=== PATIENT | female | born 1950 | race Caucasian/White ===

== ENCOUNTER 2021-02-21 21:55 | Inpatient (IN) | payer MEDICARE ==
[~2021-02-21] VITALS: Ht 144.8 cm; Wt 56.9 kg
[2021-02-21] MEDS ORDERED: IV NORMAL SALINE 1000ML BAG 1,000 ML IV ONE (22:15)
--- NOTE | 2021-02-21 22:25 | ED.ADGEN ---
General Adult EDM: Chief Complaint: MECHANICAL FALL HPI: HPI: Patient is a 70 year old female coming in via EMS from home after a fall yesterday. Patient is complaining of pain to her right foot. Patient normally ambulates with a walker but says her foot went underneath her. Came in tonight at the urging of her . Patient states she took 2 Percocets, tizanidine, and trazodone tonight. States is her usual medications. Patient states that she was given a medicine by her doctor to slow her heart rate but does not know what the name is. Patient states she has a history of a valve replacement, one cardiac stent, back surgery, and COPD. Is normally on 4 L nasal cannula at home Review of Systems: Review of Systems: All other systems within normal limits except for as noted in the HPI Current Medications: Current Medications Medications (Trade) Dose Ordered Sig/Jagdeep Start Time Stop Time Status Last Admin Dose Admin Sodium Chloride 1,000 ml @ 1,000 mls/hr 1X ONCE 02/21/21 22:15 02/21/21 23:14 DC 02/21/21 22:40 1,000 MLS/HR Allergies: Allergies: Allergies Coded Allergies Type Severity Reaction Last Updated Verified morphine Allergy Severe 02/21/21 Yes Physical Exam: PE: Constitutional: Well developed, well nourished, no acute distress, non-toxic appearance. [] HENT: Normocephalic, atraumatic, bilateral external ears normal, nose normal. [] Eyes: PERRLA, conjunctiva normal, no discharge. [] Neck: No rigidity, supple, no stridor. [] Cardiovascular: Regular rate and rhythm, brisk cap refill [] Lungs & Thorax: Non labored symmetric respirations, no tachypnea or respiratory distress [] Abdomen: Soft, nondistended. Skin: Warm, dry, no erythema, no rash. [] Back: Unremarkable Extremities: No deformities, range of motion grossly intact, no lower extremity edema. Redness and tenderness over right ankle, redness and bruising over right second toe [] Neurologic: Alert and oriented X 3, no focal deficits noted. [] Psychologic: Affect normal, judgement normal, mood normal. [] Current Patient Data: Labs: Laboratory Tests Test 02/21/21 22:40 White Blood Count 6.7 x10^3/uL (4.0-11.0) Red Blood Count 3.48 x10^6/uL (3.50-5.40) L Hemoglobin 9.0 g/dL (12.0-15.5) L Hematocrit 28.2 % (36.0-47.0) L Mean Corpuscular Volume 81 fL (79-100) Mean Corpuscular Hemoglobin 26 pg (25-35) Mean Corpuscular Hemoglobin Concent 32 g/dL (31-37) Red Cell Distribution Width 19.5 % (11.5-14.5) H Platelet Count 86 x10^3/uL (140-400) L Neutrophils (%) (Auto) 53 % (31-73) Lymphocytes (%) (Auto) 33 % (24-48) Monocytes (%) (Auto) 11 % (0-9) H Eosinophils (%) (Auto) 2 % (0-3) Basophils (%) (Auto) 1 % (0-3) Neutrophils # (Auto) 3.6 x10^3/uL (1.8-7.7) Lymphocytes # (Auto) 2.2 x10^3/uL (1.0-4.8) Monocytes # (Auto) 0.7 x10^3/uL (0.0-1.1) Eosinophils # (Auto) 0.2 x10^3/uL (0.0-0.7) Basophils # (Auto) 0.0 x10^3/uL (0.0-0.2) Platelet Estimate Decreased (ADEQUATE) Large Platelets Few Giant Platelets Occ Prothrombin Time 13.6 SEC (11.7-14.0) Prothrombin Time INR 1.0 (0.8-1.1) D-Dimer (Valarie) 4.81 ug/mlFEU (0.00-0.50) H Sodium Level 139 mmol/L (136-145) Potassium Level 5.8 mmol/L (3.5-5.1) H Chloride Level 104 mmol/L (98-107) Carbon Dioxide Level 27 mmol/L (21-32) Anion Gap 8 (6-14) Blood Urea Nitrogen 40 mg/dL (7-20) H Creatinine 1.1 mg/dL (0.6-1.0) H Estimated GFR (Cockcroft-Gault) 49.2 BUN/Creatinine Ratio 36 (6-20) H Glucose Level 108 mg/dL (70-99) H Lactic Acid Level 0.9 mmol/L (0.4-2.0) Calcium Level 10.0 mg/dL (8.5-10.1) Phosphorus Level 3.3 mg/dL (2.6-4.7) Magnesium Level 1.6 mg/dL (1.8-2.4) L Total Bilirubin 0.3 mg/dL (0.2-1.0) Aspartate Amino Transferase (AST) 38 U/L (15-37) H Alanine Aminotransferase (ALT) 20 U/L (14-59) Alkaline Phosphatase 145 U/L (46-116) H Troponin I High Sensitivity 15 ng/L (4-50) HM-Yvv-K-Type Natriuretic Peptide 3284 pg/mL (0-124) H Total Protein 6.9 g/dL (6.4-8.2) Albumin 3.0 g/dL (3.4-5.0) L Albumin/Globulin Ratio 0.8 (1.0-1.7) L Ethyl Alcohol Level < 10 mg/dL (0-10) Laboratory Tests 02/21/21 22:40 Laboratory Tests 02/21/21 22:40 Vital Signs: Vital Signs Date Time Temp Pulse Resp B/P (MAP) Pulse Ox O2 Delivery O2 Flow Rate FiO2 02/21/21 22:58 42 16 72/51 (58) 100 Nasal Cannula 2.0 02/21/21 22:20 98.0 98.0 EKG: EKG: Sinus bradycardia, left axis deviation, heart rate 44 bpm, right bundle branch block, bifascicular block, no ST elevation or depression, T wave inversions in inferior leads. No previous for comparison [] Heart Score: C/O Chest Pain: No HEART Score for Chest Pain: HEART Score for Chest Pain Response (Comments) Value History Slighlty/Non-Suspicious 0 ECG Nonspecific Repolarizatio 1 Age > 65 2 Risk Factors >3 Risk Factors or Hx CAD 2 Troponin < Normal Limit 0 Total 5 Risk Factors: Risk Factors: DM, Current or recent (<one month) smoker, HTN, HLP, family history of CAD, obesity. Risk Scores: Score 0 - 3: 2.5% MACE over next 6 weeks - Discharge Home Score 4 - 6: 20.3% MACE over next 6 weeks - Admit for Clinical Observation Score 7 - 10: 72.7% MACE over next 6 weeks - Early Invasive Strategies Radiology/Procedures: Radiology/Procedures: [place] [address] IMAGING REPORT Signed PATIENT: MARIA ESTHER DE LA CRUZ ACCOUNT: [id number] : 1950 LOCATION: ER AGE: 70 SEX: F EXAM STATUS: REG ER ORD. PHYSICIAN: KAVON SHARMA MD REASON: fall PROCEDURE: FOOT RIGHT 3V Three-view right foot HISTORY: Pain status post fall AP lateral oblique views There is a pin in the first metatarsal. There is buckling of the cortex of the distal second metatarsal without interruption of the cortex. There is a nondisplaced fracture through the midportion of the proximal phalanx of the great toe. IMPRESSION: 1. Acute fracture of the proximal phalanx of the great toe. 2. Probable acute fracture of the distal portion of the second metatarsal. Electronically signed by: El Horton III, MD (02/21/2021 11:58 PM) [facility] DICTATED and SIGNED BY: EL HORTON III, MD DATE: 02/21/21 [id number] [][place] [id number] IMAGING REPORT Signed PATIENT: MARIA ESTHER DE LA CRUZ ACCOUNT: [id number] : 1950 LOCATION: ER AGE: 70 SEX: F EXAM STATUS: REG ER ORD. PHYSICIAN: KAVON SHARMA MD REASON: fall PROCEDURE: HIP RIGHT 2V WITH PELVIS XR BILATERAL HIP (WITH OR WITHOUT PELVIS) 2 VIEWS_RIGHT, XR RT TIBIA+FIBULA , XR CHEST 1V, XR EXAM OF ANKLE_RIGHT 3VIEWS Clinical History: Reason: fall / Spl. Instructions: / History: One view chest: Technique: AP view of the chest was obtained at 02/21/2021 11:10 PM. Comparison: None. Findings: The chest is borderline enlarged. The pulmonary vasculature is normal. There is a few linear opacities in the mid and lower lungs which are likely discoid atelectasis or scar. There is old rib fractures on the left. There is mediastinal wires and there is fusion of the thoracic spine with Mancera rods.. Impression: No evidence of an acute cardiopulmonary process. End impression Two-view right tibia fibula: AP lateral views Visualized osseous structures appear normal. IMPRESSION: No acute findings. End impression 3 views right ankle: AP lateral oblique views There is a nondisplaced spiral fracture in the distal right tibia. The tibiotalar relationship is normal. The remaining visualized osseous structures appear normal. IMPRESSION: Nondisplaced fracture distal right tibia. End impression Pelvis and 2 views right hip: AP view pelvis and AP and frog leg views right hip There is prior fusion of the lumbar and lumbosacral spine. The visualized osseous structures are grossly intact. The femoral acetabular relationship is normal. IMPRESSION: No acute findings. Electronically signed by: El Horton III, MD (02/21/2021 11:22 PM) [facility] DICTATED and SIGNED BY: EL HORTON III, MD DATE: 02/21/[id number] [facility] [address] [place] [address] IMAGING REPORT Signed PATIENT: MARIA ESTHER DE LA CRUZ ACCOUNT: [id number] : 1950 LOCATION: ER AGE: 70 SEX: F EXAM STATUS: REG ER ORD. PHYSICIAN: KAVON SHARMA MD REASON: fall PROCEDURE: CT HEAD WO CONTRAST EXAM: CT HEAD WITHOUT CONTRAST. HISTORY: Fall, trauma. TECHNIQUE: Computed tomography of the head was performed without intravenous contrast. One or more of the following individualized dose reduction techniques were utilized for this examination: 1. Automated exposure control. 2. Adjustment of the mA and/or kV according to patient size. 3. Use of iterative reconstruction technique. COMPARISON: None. FINDINGS: There is no intracranial hemorrhage. Baumann-white differentiation is preserved. The ventricles are normal in size. There is 4 mm rightward midline shift. The visualized paranasal sinuses appear clear. There are changes of bilateral cataract surgery. The temporal bones are unremarkable. The calvarium reveals no suspicious lesions. IMPRESSION: 1. No acute intracranial findings. 2. 4 mm rightward midline shift without a clear cause of mass effect. This may be a developmental variant. Comparison with older studies to confirm long-term stability. MRI with and without contrast could exclude an underlying lesion if there is persistent concern. Electronically signed by: Dre Butler MD (02/21/2021 11:25 PM) [id number] DICTATED and SIGNED BY: SARAH BUTLER MD DATE: 02/21/21 [id number] 0 Course & Med Decision Making: Course & Med Decision Making Pertinent Labs and Imaging studies reviewed. (See chart for details) Patient initially hypotensive but mentating. Patient hydrated with an improvement of her blood pressure from 66/30 to a systolic of 140s. [] Dragon Disclaimer: Dragon Disclaimer: This electronic medical record was generated, in whole or in part, using a voice recognition dictation system. Departure Departure Impression: Primary Impression: Closed right ankle fracture Additional Impressions: Fall Dehydration Hypotension Disposition: ADMITTED INPATIENT Admitting Physician: HIMKala Condition: IMPROVED Referrals: FIDENCIO NOGUERA (PCP) Problem Qualifiers KAVON SHARMA MD Feb 21, 2021 22:25
--- NOTE | 2021-02-21 22:38 | EKG ---
[facility] [address] [place] [address] Test Date: 2021-02-21 Test Time: 22:13:16 Pat Name: MARIA ESTHER DE LA CRUZ Department: Room: Gender: F Heat Curer: : 1950 Requested By: KAVON SHARMA Order Number: [id number] Reading MD: Keegan Ramos Measurements Intervals Offerle Rate: 44 P: 25 RI: 156 QRS: -37 QRSD: 142 T: -24 QT: 460 QTc: 393 Interpretive Statements SINUS BRADYCARDIA ABNORMAL LEFT AXIS DEVIATION LEFT ANTERIOR FASCICULAR BLOCK RIGHT BUNDLE BRANCH BLOCK BIFASCICULAR BLOCK ABNORMAL ECG RI6.02 No previous ECG available for comparison Electronically Signed On 02-22-2021 14:17:45 PLATING MACHINE OPERATOR by Keegan Ramos
[2021-02-21 22:52] LABS: BASO % 1 % (0-3); EOS # 0.2 x10^3/uL (0.0-0.7); EOS % 2 % (0-3); HEMATOCRIT 28.2 % (36.0-47.0); LYMPH # 2.2 x10^3/uL (1.0-4.8); LYMPH % 33 % (24-48); MEAN CORPUSCULAR HEMOGLOBIN 26 pg (25-35); MEAN CORPUSCULAR HGB CONC 32 g/dL (31-37); MEAN CORPUSCULAR VOLUME 81 fL (79-100); MONO # 0.7 x10^3/uL (0.0-1.1); MONO % 11 % (0-9); NEUT # 3.6 x10^3/uL (1.8-7.7); NEUT % 53 % (31-73); PLATELET COUNT 86 x10^3/uL (140-400); RED BLOOD COUNT 3.48 x10^6/uL (3.50-5.40); RED CELL DISTRIBUTION WIDTH 19.5 % (11.5-14.5); WHITE BLOOD COUNT 6.7 x10^3/uL (4.0-11.0)
[2021-02-21 23:01] LABS: PROTHROMBIN TIME PATIENT 13.6 SEC (11.7-14.0)
[2021-02-21 23:07] LABS: ALBUMIN/GLOBULIN RATIO 0.8 (1.0-1.7); CREATININE 1.1 mg/dL (0.6-1.0); GFR 49.2; MAGNESIUM 1.6 mg/dL (1.8-2.4); PHOSPHORUS 3.3 mg/dL (2.6-4.7); TOTAL BILIRUBIN 0.3 mg/dL (0.2-1.0); TOTAL PROTEIN 6.9 g/dL (6.4-8.2)
[2021-02-21 23:23] LABS: D-DIMER 4.81 ug/mlFEU (0.00-0.50)
[2021-02-21 23:24] LABS: POTASSIUM 5.8 mmol/L (3.5-5.1)
--- NOTE | 2021-02-21 23:25 | RAD ---
XR BILATERAL HIP (WITH OR WITHOUT PELVIS) 2 VIEWS_RIGHT, XR RT TIBIA+FIBULA , XR CHEST 1V, XR EXAM OF ANKLE_RIGHT 3VIEWS Clinical History: Reason: fall / Spl. Instructions: / History: One view chest: Technique: AP view of the chest was obtained at 02/21/2021 11:10 PM. Comparison: None. Findings: The chest is borderline enlarged. The pulmonary vasculature is normal. There is a few linear opacitie s in the mid and lower lungs which are likely discoid atelectasis or scar. There is old rib fractures on the left. There is mediastinal wires and there is fusion of the thoracic spine with Mancera ro ds.. Impression: No evidence of an acute cardiopulmonary process. End impression Two-view right tibia fibula: AP lateral views Visualized osseous structures appear normal. IMPRESSION: No acute findings. End impression 3 views right ankle: AP lateral oblique views There is a nondisplaced spiral fracture in the distal right tibia. The tibiotalar relationship is nor mal. The remaining visualized osseous structures appear normal. IMPRESSION: Nondisplaced fracture distal right tibia. End impression Pelvis and 2 views right hip: AP view pelvis and AP and frog leg views right hip There is prior fusion of the lumbar and lumbosacral spine. The visualized osseous structures are reginaldo sly intact. The femoral acetabular relationship is normal. IMPRESSION: No acute findings. Electronically signed by: Cem Acosta III, MD (02/21/2021 11:22 PM) [facility]
--- NOTE | 2021-02-21 23:27 | RAD ---
EXAM: CT HEAD WITHOUT CONTRAST. HISTORY: Fall, trauma. TECHNIQUE: Computed tomography of the head was performed without intravenous contrast. One or more of the following individualized dose reduction techniques were utilized for this examination: 1. Automated exposure control. 2. Adjustment of the mA and/or kV according to patient size. 3. Use of iterative reconstruction technique. COMPARISON: None. FINDINGS: There is no intracranial hemorrhage. Baumann-white differentiation is preserved. The ventricle s are normal in size. There is 4 mm rightward midline shift. The visualized paranasal sinuses appear clear. There are changes of bilateral cataract surgery. The t emporal bones are unremarkable. The calvarium reveals no suspicious lesions. IMPRESSION: 1. No acute intracranial findings. 2. 4 mm rightward midline shift without a clear cause of mass effect. This may be a developmental nevaeh iant. Comparison with older studies to confirm long-term stability. MRI with and without contrast cou ld exclude an underlying lesion if there is persistent concern. Electronically signed by: Dre Butlre MD (02/21/2021 11:25 PM) [id number]
[2021-02-22] VITALS (7 sets, daily range): BP systolic 91–148; BP diastolic 30–53
--- NOTE | 2021-02-22 | RAD ---
Three-view right foot HISTORY: Pain status post fall AP lateral oblique views There is a pin in the first metatarsal. There is buckling of the cortex of the distal second metatars al without interruption of the cortex. There is a nondisplaced fracture through the midportion of the proximal phalanx of the great toe. IMPRESSION: 1. Acute fracture of the proximal phalanx of the great toe. 2. Probable acute fracture of the distal portion of the second metatarsal. Electronically signed by: Cem Acosta III, MD (02/21/2021 11:58 PM) [facility]
[2021-02-22] MEDS ORDERED: IOHEXOL 350 MG/ML 100 ML VIAL. IV ONE (00:15)
[2021-02-22] MEDS ORDERED: IV NORMAL SALINE 500ML BAG 500 ML IV ONE (00:15)
[2021-02-22] MEDS ORDERED: CONTRAST GIVEN. MC PRN (00:30)
[2021-02-22 00:31] LABS: PLT ESTIMATE DECREASED (ADEQUATE)
[2021-02-22 02:22] LABS: BARBITURATES NEG (NEG); BENZODIAZEPINES NEG (NEG); CANNABINOIDS NEG (NEG); COCAINE NEG (NEG); METHADONE NEG (NEG); OPIATES POS (NEG); PHENCYCLIDINE NEG (NEG)
[2021-02-22 02:29] LABS: AMPHETAMINE/METHAMPHETAMINE NEG (NEG)
--- NOTE | 2021-02-22 02:57 | RAD ---
CTA Chest with contrast: Clinical History: Reason: hypotension / Spl. Instructions: / History: Shortness of breath. Axial helical images of the chest were obtained after the administration of 100 cc of IV Isovue-370 a nd timed appropriately for a pulmonary arterial study. Conventional axial reconstruction was perform ed in addition to coronal, sagittal and bilateral oblique MIP (maximum intensity projection). This s tudy was ordered to detect possible pulmonary embolism. There are no filling defects to suggest pulmonary embolism. There is peripheral emphysematous changes in the lungs and there are few linear opacities bilaterally which are likely discoid atelectasis or scar. There is beam Ramos artifact due to hardware from prior fusion of the thoracic spine and there is o ld T3 and T6 vertebral body compression fractures. There is no mediastinal or hilar lymphadenopathy. The thoracic aorta appears normal. Impression: 1. No evidence of pulmonary embolism. 2. No acute findings. End impression PQRS Compliance Statement: One or more of the following individualized dose reduction techniques were utilized for this examinat ion: 1. Automated exposure control 2. Adjustment of the mA and/or kV according to patient size 3. Use of iterative reconstruction technique Electronically signed by: Cem Acosta III, MD (02/22/2021 2:55 AM) [facility]
[2021-02-22] MEDS ORDERED: ACETAMINOPHEN 325 MG TABLET. PO PRN (03:15)
[2021-02-22] MEDS ORDERED: ONDANSETRON PF 4 MG/2 ML VIAL. IVP PRN (03:15)
[2021-02-22] MEDS: IV NORMAL SALINE 1000ML BAG 1,000 ML IV SCH ×2 (03:38→16:39)
--- NOTE | 2021-02-22 03:59 | NUR ---
The patient, MARIA ESTHER DE LA CRUZ, 70 y/o, F admitted by GOGO VENEGAS MD, was given written information regarding hospital policies, unit procedures and contact persons. Valuables were checked and left with her.
[2021-02-22] MEDS: fentaNYL PF VIAL 100 MCG/2 ML VIAL IVP PRN ×2 (08:26→11:21)
--- NOTE | 2021-02-22 10:13 | PDOC2 ---
GILDA ROBERTS CAUSTICISER 02/22/21 1013: CARDIAC CONSULT DATE OF CONSULT Date of Consult DATE: 02/22/21 TIME: 09:59 REASON FOR CONSULT Reason for Consult: hypotension, bradycardia REFERRING PHYSICIAN Referring Physician: Pari SOURCE Source: Chart review, Patient HISTORY OF PRESENT ILLNESS HISTORY OF PRESENT ILLNESS This is a 70 yo female admitted for complains of fall. She typically uses a walker then she loss her footing but no issues with passing out and no loss of consciousness. She does have multiple medications that could affect her balance namely percocet tinzainidine an trazodone. hx of CAD, open aortic bioprosthetic valve replacement and COPD and o2 use. Denies any chest pain, SOA. She is a poor historian. The accuracy of her medications are unclear. PAST MEDICAL HISTORY Cardiovascular: HTN, Hyperlipidemia, Aortic stenosis, Valve insufficiency Pulmonary: COPD CENTRAL NERVOUS SYSTEM: Other (no pertinent history) GI: GERD Heme/Onc: Anemia NOS Hepatobiliary: No pertinent hx Psych: Anxiety Musculoskeletal: Osteoarthritis Rheumatologic: Rheumatoid arthritis ENT: No pertinent hx Endocrine: No pertinent hx Dermatology: No pertinent hx PAST SURGICAL HISTORY Past Surgical History: Appendectomy, Cholecystectomy, Hysterectomy, Other (open aortic bioprosthetic valve repair) FAMILY HISTORY Family History: Family History Unknown SOCIAL HISTORY Smoke: <1 pack per day ALCOHOL: none Drugs: None Lives: with Family CURRENT MEDICATIONS CURRENT MEDICATIONS Current Medications Medications (Trade) Dose Ordered Sig/Jagdeep Route PRN Reason Start Time Stop Time Status Last Admin Dose Admin Sodium Chloride 1,000 ml @ 1,000 mls/hr 1X ONCE IV 02/21/21 22:15 02/21/21 23:14 DC 02/21/21 22:40 Sodium Chloride 500 ml @ 500 mls/hr 1X ONCE IV 02/22/21 00:15 02/22/21 01:14 DC 02/22/21 00:14 Iohexol (Omnipaque 350 Mg/ml) 75 ml 1X ONCE IV 02/22/21 00:15 02/22/21 00:17 DC 02/22/21 02:30 Fentanyl Citrate (Fentanyl 2ml Vial) 50 mcg PRN Q1HR PRN IVP PAIN 02/22/21 03:15 02/23/21 03:14 02/22/21 08:26 Sodium Chloride 1,000 ml @ 75 mls/hr [id number] IV 02/22/21 03:15 02/23/21 03:14 02/22/21 03:38 ALLERGIES ALLERGIES: Coded Allergies: morphine (Verified Allergy, Severe, 02/21/21) ROS Review of System 14 point ROS evaluated with pertinent positives noted per HPI PHYSICAL EXAM General: Alert, Oriented X3, Cooperative, No acute distress HEENT: Atraumatic, Mucous membr. moist/pink Lungs: Other (diminished bases) Heart: Regular rate (SR), Normal S1, Normal S2, Other (5/6 systolic murmur loudest to PETAR and apex) Abdomen: Soft, No tenderness Extremities: No cyanosis, No edema Skin: No breakdown, No significant lesion Neuro: Normal speech, Sensation intact Psych/Mental Status: Mental status NL, Mood NL MUSCULOSKELETAL: Osteoarthritic changes both hands, Other (fractured right foot, right big toe and distal fibula) VITALS/I&O VITALS/I&O: Vital Signs Date Time Temp Pulse Resp B/P (MAP) Pulse Ox O2 Delivery O2 Flow Rate FiO2 02/22/21 09:35 96 Nasal Cannula 2.0 02/22/21 07:00 98.0 56 18 144/45 (78) 98.0 I & O 02/21/21 02/21/21 02/22/21 15:00 23:00 07:00 Intake Total 1500 ml Balance 1500 ml LABS Lab: Laboratory Tests Test 02/21/21 22:40 02/22/21 02:10 02/22/21 03:31 White Blood Count 6.7 x10^3/uL (4.0-11.0) Red Blood Count 3.48 x10^6/uL (3.50-5.40) L Hemoglobin 9.0 g/dL (12.0-15.5) L Hematocrit 28.2 % (36.0-47.0) L Mean Corpuscular Volume 81 fL (79-100) Mean Corpuscular Hemoglobin 26 pg (25-35) Mean Corpuscular Hemoglobin Concent 32 g/dL (31-37) Red Cell Distribution Width 19.5 % (11.5-14.5) H Platelet Count 86 x10^3/uL (140-400) L Neutrophils (%) (Auto) 53 % (31-73) Lymphocytes (%) (Auto) 33 % (24-48) Monocytes (%) (Auto) 11 % (0-9) H Eosinophils (%) (Auto) 2 % (0-3) Basophils (%) (Auto) 1 % (0-3) Neutrophils # (Auto) 3.6 x10^3/uL (1.8-7.7) Lymphocytes # (Auto) 2.2 x10^3/uL (1.0-4.8) Monocytes # (Auto) 0.7 x10^3/uL (0.0-1.1) Eosinophils # (Auto) 0.2 x10^3/uL (0.0-0.7) Basophils # (Auto) 0.0 x10^3/uL (0.0-0.2) Platelet Estimate Decreased (ADEQUATE) Large Platelets Few Giant Platelets Occ Prothrombin Time 13.6 SEC (11.7-14.0) Prothrombin Time INR 1.0 (0.8-1.1) D-Dimer (Valarie) 4.81 ug/mlFEU (0.00-0.50) H Sodium Level 139 mmol/L (136-145) Potassium Level 5.8 mmol/L (3.5-5.1) H Chloride Level 104 mmol/L (98-107) Carbon Dioxide Level 27 mmol/L (21-32) Anion Gap 8 (6-14) Blood Urea Nitrogen 40 mg/dL (7-20) H Creatinine 1.1 mg/dL (0.6-1.0) H Estimated GFR (Cockcroft-Gault) 49.2 BUN/Creatinine Ratio 36 (6-20) H Glucose Level 108 mg/dL (70-99) H Lactic Acid Level 0.9 mmol/L (0.4-2.0) Calcium Level 10.0 mg/dL (8.5-10.1) Phosphorus Level 3.3 mg/dL (2.6-4.7) Magnesium Level 1.6 mg/dL (1.8-2.4) L Total Bilirubin 0.3 mg/dL (0.2-1.0) Aspartate Amino Transferase (AST) 38 U/L (15-37) H Alanine Aminotransferase (ALT) 20 U/L (14-59) Alkaline Phosphatase 145 U/L (46-116) H Troponin I High Sensitivity 15 ng/L (4-50) KD-Jzh-[id number]-Type Natriuretic Peptide 3284 pg/mL (0-124) H Total Protein 6.9 g/dL (6.4-8.2) Albumin 3.0 g/dL (3.4-5.0) L Albumin/Globulin Ratio 0.8 (1.0-1.7) L Ethyl Alcohol Level < 10 mg/dL (0-10) Urine Opiates Screen Pos (NEG) Urine Methadone Screen Neg (NEG) Urine Barbiturates Neg (NEG) Urine Phencyclidine Screen Neg (NEG) Urine Amphetamine/Methamphetamine Neg (NEG) Urine Benzodiazepines Screen Neg (NEG) Urine Cocaine Screen Neg (NEG) Urine Cannabinoids Screen Neg (NEG) Urine Ethyl Alcohol Neg (NEG) SARS-CoV-2 Antigen (Rapid) Negative (NEGATIVE) Laboratory Tests 02/21/21 22:40 Laboratory Tests 02/21/21 22:40 ASSESSMENT/PLAN ASSESSMENT/PLAN 1. Traumatic mechanical fall with fracture right distal fibula, great toe, and second metatarsal. Lost her footing 2. Abnormal head CT: defer to PCP 4 mm rightward midline shift without a clear cause of mass effect. This may be a developmental variant per head CT 3. Hx of aortic stenosis with open bioprosthetic replacement: loud murmur noted 4. Hx of RA 5. HTN: controlled 6. HLP 7. CAD: unclear details 8. prerenal azotemia with hyperkalemia r/t Dehydration: poor home PO intake. better after IV hydration 9. suspect chronic diastolic/systolic CHF: appears compensated 10. COPD with continued tobaccoism 11. Asymptomatic SB with RBBB: likely chronic no pauses or blocks 12. Anemia thrmobocytopenia Recommendations 1. TTE, TSH 2. Will obtain cardiac records and discussed with RN to obtain accurate med list 3. She is overmedicated namely with opioids, antidepressants and muscle relaxant which could then affect her balance and gait stability. Will need reevaluation and will defer to PCP 4. Consult TRINO Serrano MD 02/22/21 1528: CARDIAC CONSULT ASSESSMENT/PLAN ASSESSMENT/PLAN Patient seen and examined. Agree with PROFILE M[employer] OPERATOR [employer]APE [employer]OL's assessment and plan. Fall mechanical without any loss of consciousness EKG with sinus bradycardia Hypotension secondary to dehydration, continue intravenous fluids s/p bioprosthetic AVR for aortic stenosis but patient has prominent ejection systolic murmur Agree with checking 2D echocardiogram for further evaluation CAD status clinically stable We will obtain and review prior medical records Thank you for your consultation GILDA ROBERTS APRN Feb 22, 2021 10:13 TRINO CM MD Feb 22, 2021 15:28
--- NOTE | 2021-02-22 11:01 | NUR ---
SW following. Discussed with RN, pt from home with spouse, 2L (uses oxygen at home), regular diet, rapid COVID-19 negative. Pt having an echo today. RN advised no SW needs at this time. SW will continue to follow.
[2021-02-22] MEDS ORDERED: OXYC-326 PO (12:12)
[2021-02-22] MEDS ORDERED: DULO20CA PO (12:12)
[2021-02-22] MEDS ORDERED: PREG300C PO (12:12)
[2021-02-22] MEDS ORDERED: ARAVA20 MG PO (12:12)
[2021-02-22] MEDS ORDERED: OXYC1TAB19 PO (12:16)
--- NOTE | 2021-02-22 12:20 | PN ---
DATE: 02/22/2021 CHIEF COMPLAINT: Fall with right ankle fracture. HISTORY OF PRESENT ILLNESS: The patient is a pleasant 70-year-old female who presented with hypotension and a fall and fractured her right ankle. She went to surgery yesterday. Currently being examined in room 562, where she has clean, dry, intact dressing on her ankles. I discussed the case with her who is here. He would like her to go to rehab. ASSESSMENT AND PLAN: Fall, postop day 1 right ankle fracture, hypotension. For now, we are going to do wound care, p.r.n. pain meds. PT, OT, home meds, DVT prophylaxis. Full code. I suspect she will go to residential in a day or two. NASEEM DR: Elizabeth TID: [id number]
[2021-02-22 12:24] LABS: CALCIUM 8.9 mg/dL (8.5-10.1); POTASSIUM 5.1 mmol/L (3.5-5.1)
[2021-02-22 12:25] LABS: MAGNESIUM 1.5 mg/dL (1.8-2.4)
[2021-02-22] MEDS: LEFLUNOMIDE 10 MG TABLET. PO SCH (12:47)
[2021-02-22] MEDS: oxyCODONE/APAP 7.5/325 1 TAB TABLET PO PRN ×2 (12:47→20:34)
[2021-02-22] MEDS: DULoxetine HCL 20 MG CAPSULE.DR PO SCH (12:47)
[2021-02-22] MEDS: PREGABALIN 75 MG CAPSULE PO SCH ×2 (12:47→20:34)
[2021-02-22] MEDS ORDERED: SULF-16 PO (15:47)
[2021-02-22] MEDS ORDERED: LOVA20TA2 PO (15:47)
[2021-02-22] MEDS ORDERED: POTA-112 PO (15:47)
[2021-02-22] MEDS ORDERED: IPRA0.2S5 NS (15:47)
[2021-02-22] MEDS ORDERED: LOSA-73 PO (15:47)
[2021-02-22] MEDS ORDERED: PANT40TA77 PO (15:47)
[2021-02-22] MEDS ORDERED: BREO ELLIPTA 11 EACH IH (15:47)
[2021-02-22] MEDS ORDERED: BISO5TAB8 PO (15:47)
[2021-02-22] MEDS ORDERED: TIZA-75 PO (15:47)
[2021-02-22] MEDS ORDERED: FLUC100T4 PO (15:47)
[2021-02-22] MEDS ORDERED: ATOR10TA60 PO (15:47)
[2021-02-22] MEDS ORDERED: TRAZ150T49 PO (15:47)
[2021-02-22] MEDS ORDERED: LEFL10TA13 PO (15:47)
[2021-02-22] MEDS ORDERED: ALEN70TA71 PO (15:47)
[2021-02-22] MEDS ORDERED: MAGNESIUM SULFATE 2GM 50 ML IV ONE (16:00)
--- NOTE | 2021-02-22 17:35 | CONS ---
DATE OF CONSULTATION: 02/22/2021 HISTORY OF PRESENT ILLNESS: She is a 70-year-old female who sustained a fall she says about 4:00 on Sunday morning. She slipped and fell on a slick floor and subsequent to that had significant pain in her foot and mainly her lower leg. She was brought to the Emergency Department therefore due to the pain level she was having with any type of ambulation. She did not have any other significant complaints other than those described. No numbness or tingling complaints. Thankfully, no back injuries or problems. Past medical and surgical history, medications, allergies, review of systems have been reviewed and are available in the chart. PHYSICAL EXAMINATION: The patient does have a posterior splint. There is pain with palpation along the area of the distal third of the tib-fib region with mainly on the tibia side. No significant pain on the fibular side at this point. There is also limited exam due to the nature of the splint of the foot; however sensation appears to be intact, neurovascular is intact completely. X-rays were reviewed, which revealed a nondisplaced spiral fracture of the distal right tibia. There is also fracture which is apparent on the fourth metatarsal distally as well as the proximal phalanx of the fifth digit. These were noticed and plain film x-rays and reviewed today. At this point due to the nature of her fracture, she will remain in the splint and be casted with a below-knee fiberglass cast at some point when the swelling diminishes. At the present time, she can maintain splint. She will be strict nonweightbearing with the use of a walker. Ice and elevation as needed. Pain control as needed. I will certainly follow her with serial x-rays and examinations; however, we did discuss with her today the significance of the nonweightbearing status. SHARON DR: Juliano TID: [id number]
[2021-02-22] MEDS: ALBUTEROL SULFATE 2.5 MG/3 ML NEBU. NEB SCH ×2 (17:49→21:03)
[2021-02-22] MEDS ORDERED: IPRATROPIUM BROMIDE 0.5 MG/2.5 ML NEBU. NEB SCH (20:00)
[2021-02-22] MEDS: tiZANidine 4 MG TABLET. PO SCH (20:34)
[2021-02-22] MEDS: traZODone 50 MG TABLET. PO SCH (20:34)
[2021-02-22] MEDS ORDERED: [UNRECOGNIZED DRUG - OTHER] PO SCH (21:00)
[2021-02-22] MEDS ORDERED: TRIMETHOPRIM PO SCH (21:00)
[2021-02-22] MEDS ORDERED: IPRATROPIUM BROMIDE 0.5 MG/2.5 ML NEBU. IH SCH (21:00)
[2021-02-22] MEDS ORDERED: SULFAMETHOXAZOLE PO SCH (21:00)
[2021-02-22] MEDS: BUDESONIDE 0.5 MG/2 ML NEBU. NEB SCH (21:02)
[2021-02-23 03:00] VITALS: BP 107/30
[2021-02-23 07:00] VITALS: BP 138/69
[2021-02-23] MEDS: BUDESONIDE 0.5 MG/2 ML NEBU. NEB SCH ×2 (07:18→20:35)
[2021-02-23] MEDS: IPRATRPIUM/ALBUTEROL 0.5/2.5MG 3 ML NEBU. NEB SCH ×4 (07:18→20:35)
--- NOTE | 2021-02-23 08:49 | PDOC ---
[facility] PROGRESS NOTE Date of Service DOS: DATE: 02/23/21 TIME: 08:48 Chief Complaint Chief Complaint Right ankle fracture Hypertension Hyperlipidemia ASA COPD GERD Anemia Anxiety Osteoarthritis Rheumatoid arthritis History of Present Illness History of Present Illness 02/23/2021 Patient seen and examined She is resting with no apparent stress Discussed with RN Chart reviewed She has IV normal saline hanging at 75 cc an hour Has IV magnesium hanging Vitals/I&O Vitals/I&O: Vital Signs Date Time Temp Pulse Resp B/P (MAP) Pulse Ox O2 Delivery O2 Flow Rate FiO2 02/23/21 07:20 100 Nasal Cannula 2.0 02/23/21 03:00 97.4 49 18 107/30 (55) 97.4 I & O 02/22/21 02/22/21 02/23/21 15:00 23:00 07:00 Intake Total 360 ml 360 ml 240 ml Balance 360 ml 360 ml 240 ml Physical Exam General: No acute distress Heart: Regular rate (SR), Normal S1, Normal S2, Other (5/6 systolic murmur loudest to PETAR and apex) Abdomen: Soft, No tenderness Extremities: No cyanosis, No edema Skin: No breakdown, No significant lesion Labs Labs: Laboratory Tests Test 02/22/21 11:05 02/22/21 11:14 Sodium Level 141 mmol/L (136-145) Potassium Level 5.1 mmol/L (3.5-5.1) Chloride Level 107 mmol/L (98-107) Carbon Dioxide Level 28 mmol/L (21-32) Anion Gap 6 (6-14) Blood Urea Nitrogen 26 mg/dL (7-20) Creatinine 1.0 mg/dL (0.6-1.0) Estimated GFR (Cockcroft-Gault) 55.0 Glucose Level 127 mg/dL (70-99) Calcium Level 8.9 mg/dL (8.5-10.1) Magnesium Level 1.5 mg/dL (1.8-2.4) Creatine Kinase 175 U/L (26-192) Thyroid Stimulating Hormone (TSH) 1.156 uIU/mL (0.358-3.74) Assessment and Plan Assessmemt and Plan Right ankle fracture Hypertension Hypotension Hyperlipidemia ASA COPD GERD Anemia Anxiety Osteoarthritis Rheumatoid arthritis Plan Monitor blood pressure Home meds DVT prophylaxis Full code Pain meds Trend labs She may need fdc Appreciate subspecialist input Comment Review of Relevant I have reviewed the following items maggie (where applicable) has been applied. Medications: Current Medications Medications (Trade) Dose Ordered Sig/Jagdeep Route PRN Reason Start Time Stop Time Status Last Admin Dose Admin Duloxetine HCl (Cymbalta) 20 mg DAILY PO 02/22/21 13:00 02/22/21 12:47 Oxycodone/ Acetaminophen (Percocet 7.5/ 325) 1 tab PRN Q6HRS PRN PO PAIN 02/22/21 12:30 02/22/21 20:34 Leflunomide (Arava) 20 mg DAILY PO 02/22/21 13:00 02/22/21 12:47 Pregabalin (Lyrica) 300 mg BID PO 02/22/21 13:00 02/22/21 20:34 Magnesium Sulfate 50 ml @ 25 mls/hr 1X ONCE IV 02/22/21 16:00 02/22/21 17:59 DC 02/22/21 16:38 Tizanidine HCl (Zanaflex) 4 mg TID PO 02/22/21 21:00 02/22/21 20:34 Trazodone HCl (Desyrel) 150 mg QHS PO 02/22/21 21:00 02/22/21 20:34 Budesonide (Pulmicort) 0.5 mg RTBID NEB 02/22/21 20:00 02/23/21 07:18 Albuterol Sulfate (Ventolin Neb Soln) 2.5 mg RTQID NEB 02/22/21 16:00 02/22/21 22:35 DC 02/22/21 21:03 Ipratropium Putnam (Atrovent) 0.5 mg RTBID NEB 02/22/21 20:00 02/22/21 22:35 DC 02/22/21 21:02 Albuterol/ Ipratropium (Duoneb) 3 ml RTQID NEB 02/23/21 08:00 02/23/21 07:18 Justifications for Admission Other Justification HAILE ESCOBAR III DO Feb 23, 2021 08:49
[2021-02-23] MEDS: ATENOLOL 50 MG TABLET. PO SCH (09:00)
[2021-02-23] MEDS: tiZANidine 4 MG TABLET. PO SCH ×3 (09:00→21:31)
[2021-02-23] MEDS: PREGABALIN 75 MG CAPSULE PO SCH ×3 (09:00→21:31)
[2021-02-23] MEDS ORDERED: LEFLUNOMIDE 10 MG TABLET. PO SCH (09:00)
[2021-02-23] MEDS ORDERED: NON FORMULARY ITEM (Fluticasone/Vilanterol (Breo Ellipta 100-25 Mcg Inh) 1 PUFF) IH SCH (09:00)
[2021-02-23] MEDS ORDERED: NON FORMULARY ITEM (Lovastatin 1 TAB) PO SCH (09:00)
[2021-02-23] MEDS: LOSARTAN POTASSIUM 25 MG TABLET. PO SCH (09:00)
[2021-02-23] MEDS ORDERED: FLUCONAZOLE 100 MG TABLET. PO SCH (09:00)
--- NOTE | 2021-02-23 10:00 | NUR ---
Patient very lethargic this am. Patient would open eyes and then go back to sleep or ask "what" and fell back asleep. notified and camacho drawn.
[2021-02-23 10:51] LABS: BASO % 1 % (0-3); EOS # 0.1 x10^3/uL (0.0-0.7); EOS % 2 % (0-3); HEMATOCRIT 28.1 % (36.0-47.0); HEMOGLOBIN 8.6 g/dL (12.0-15.5); LYMPH # 1.5 x10^3/uL (1.0-4.8); LYMPH % 29 % (24-48); MEAN CORPUSCULAR HEMOGLOBIN 26 pg (25-35); MEAN CORPUSCULAR HGB CONC 31 g/dL (31-37); MEAN CORPUSCULAR VOLUME 84 fL (79-100); MONO # 0.4 x10^3/uL (0.0-1.1); MONO % 8 % (0-9); NEUT # 3.1 x10^3/uL (1.8-7.7); NEUT % 61 % (31-73); PLATELET COUNT 80 x10^3/uL (140-400); RED BLOOD COUNT 3.35 x10^6/uL (3.50-5.40); RED CELL DISTRIBUTION WIDTH 19.3 % (11.5-14.5); WHITE BLOOD COUNT 5.1 x10^3/uL (4.0-11.0)
[2021-02-23 11:00] VITALS: BP 128/50
[2021-02-23 11:10] LABS: CALCIUM 8.7 mg/dL (8.5-10.1); CREATININE 0.8 mg/dL (0.6-1.0); GFR 71.1; POTASSIUM 4.6 mmol/L (3.5-5.1)
--- NOTE | 2021-02-23 11:32 | PDOC ---
SMITHA SANDHU [employer] 02/23/21 1132: CARDIO Progress Notes Date and Time Date of Service 02/23/21 Time of Evaluation 1120 Subjective Subjective: No Chest Pain, No shortness of breath, No Palpitations, No Dizziness Vitals Vitals Vital Signs Date Time Temp Pulse Resp B/P (MAP) Pulse Ox O2 Delivery O2 Flow Rate FiO2 02/23/21 08:00 Nasal Cannula 4.0 02/23/21 07:20 100 02/23/21 07:00 97.8 62 16 138/69 (92) 97.8 Weight Weight [ ] Input and Output Intake and Output Intake and Output 02/23/21 07:00 Intake Total 960 ml Balance 960 ml Intake Oral 960 ml # Voids 3 Laboratory Labs Laboratory Tests Test 02/23/21 09:39 02/23/21 10:24 Glucose (Fingerstick) 96 mg/dL (70-99) White Blood Count 5.1 x10^3/uL (4.0-11.0) Red Blood Count 3.35 x10^6/uL (3.50-5.40) Hemoglobin 8.6 g/dL (12.0-15.5) Hematocrit 28.1 % (36.0-47.0) Mean Corpuscular Volume 84 fL (79-100) Mean Corpuscular Hemoglobin 26 pg (25-35) Mean Corpuscular Hemoglobin Concent 31 g/dL (31-37) Red Cell Distribution Width 19.3 % (11.5-14.5) Platelet Count 80 x10^3/uL (140-400) Neutrophils (%) (Auto) 61 % (31-73) Lymphocytes (%) (Auto) 29 % (24-48) Monocytes (%) (Auto) 8 % (0-9) Eosinophils (%) (Auto) 2 % (0-3) Basophils (%) (Auto) 1 % (0-3) Neutrophils # (Auto) 3.1 x10^3/uL (1.8-7.7) Lymphocytes # (Auto) 1.5 x10^3/uL (1.0-4.8) Monocytes # (Auto) 0.4 x10^3/uL (0.0-1.1) Eosinophils # (Auto) 0.1 x10^3/uL (0.0-0.7) Basophils # (Auto) 0.0 x10^3/uL (0.0-0.2) Sodium Level 142 mmol/L (136-145) Potassium Level 4.6 mmol/L (3.5-5.1) Chloride Level 110 mmol/L (98-107) Carbon Dioxide Level 25 mmol/L (21-32) Anion Gap 7 (6-14) Blood Urea Nitrogen 21 mg/dL (7-20) Creatinine 0.8 mg/dL (0.6-1.0) Estimated GFR (Cockcroft-Gault) 71.1 Glucose Level 95 mg/dL (70-99) Calcium Level 8.7 mg/dL (8.5-10.1) Physical Exam HEENT: Neck Supple W Full Motion Chest: Symmetric LUNGS: Clear to Auscultation Heart: RRR, other (4/6 systolic murmur ) Abdomen: Soft N/T Extremities: Other (RLE splint ) Neurology: alert, oriented, follow commands Assessment Assessment 1. Traumatic mechanical fall with fracture right distal fibula, great toe, and second metatarsal. No LOC 2. Abnormal head CT: defer to PCP 4 mm rightward midline shift without a clear cause of mass effect. This may be a developmental variant per head CT 3. s/p bioprosthetic AVR; Echo 08/27 with moderate stenosis as below. 4. HTN: low end 5. Sinus bradycardia; asymptomatic. lowest 44. No pauses. BB recently discontinued due to bradycardia, hypotension 6. HLP 7. CAD: mild, nonobstructive disease per recent C as noted below 8. MIRTA, hyperkalemia r/t dehydration: improved s/p IV hydration 9. Chronic diastolic CHF: appears compensated. Echo 08/27 with preserved LV systolic function 10. COPD with continued tobaccoism. discussed/encouraged cessation 11. Anemia thrombocytopenia; monitor Recommendations Discontinue BB therapy Hold losartan as warranted for hypotension Supportive care Follow up with MAC upon discharge Records from [facility] 08/20/20 - 2D + DOPPLER ECHO Interpretation Summary LVEF=60%. Normal left ventricular size and systolic function. Right ventricular size and function are normal. Severely dilated left atrium. Bioprosthetic aortic valve with moderate stenosis. No regurgitation. Mitral annular calcification with mild-moderate regurgitation. No mitral stenosis. No pericardial effusion. Estimated pulmonary artery systolic pressure is 41 mmHg. Compared to the echocardiogram completed on 03/24/20, global left ventricular systolic function is significantly improved. The previous aortic valve mean gradient was 16.53 mmHg with a peak velocity of 2.72 m/s. No change in mitral regurgitation or tricuspid valve regurgitation. CARDIAC CATHETERIZATION REPORT Date 08/09/2020 SELECTIVE CORONARY ANGIOGRAM: Left main: Left main artery arises normally from the left coronary sinus. The left main artery is noted to be patent. Left anterior descending artery arises normally from the left main. Proximally, it is noted to be patent. After giving rise to a large diagonal branch, there are mild luminal irregularities of about 10% to 20%. The mid part of the left anterior descending artery shows mild myocardial bridging. Distally, the left anterior descending artery is patent. The left anterior descending artery gives rise to a large diagonal branch which also has about a 20% disease proximally. The rest of the diagonal branches appear to be small and they are patent. Left circumflex artery: The left circumflex artery arises normally from the left main. Left circumflex artery shows no significant disease. It gives rise to 1 obtuse marginal branch and that obtuse marginal branch appears to be patent with no significant disease. Ramus intermedius: This arises normally from the left main. The ramus intermedius has about a 30% to 40% disease in its midportion. Right coronary artery: The right coronary artery is a dominant vessel. It aline ses normally from the right coronary sinus. It has approximately a 40% disease in its midportion. Proximally, it is patent. Distally, the right coronary artery is patent and gives rise to posterolateral posterior descending arterial branches, both of which appear to be patent with no significant disease. FINAL IMPRESSION: Nonobstructive coronary artery disease. Low systolic blood pressures. Patient's blood pressure did seem to respond to IV fluids, and the aortic blood pressure was 116/56 with a mean of 80 mmHg. RECOMMENDATION: No significantly obstructive coronary artery disease is noted. Justicifation of Admission Dx: Justifications for Admission: Justification of Admission Dx: Yes Comments: traumatic mechanical fall with fracture right distal fibula, great toe, and second metatarsal. TRINO CM MD 02/23/21 5177: CARDIO Progress Notes Assessment Assessment Patient seen and examined. Agree with APPLICATION ASSISTANT's assessment and plan. Fall mechanical without any loss of consciousness EKG with sinus bradycardia Hypotension secondary to dehydration, continue intravenous fluids s/p bioprosthetic AVR for aortic stenosis - echo showed normal LVEF with poorly visualized bioprosth AV Prior records reviewed - previous echo showed moderate prosthetic AV stenosis Plan SEBASTIAN for definitive evaluation as outpatient Non-obstructive CAD status clinically stable OK for DC from cardiac standpoint SMITHA SANDHU APRN Feb 23, 2021 11:32 TRINO CM MD Feb 23, 2021 18:16
[2021-02-23 11:39] LABS: BASE EXCESS ABG 0 mmol/L (-3-3); HCO3 ABG 25 mmol/L (21-28); PCO2 ABG 44 mmHg (35-46); PO2 ABG 115 mmHg (65-108); SAT O2 ABG 98 % (92-99)
[2021-02-23 11:41] LABS: FIO2 ABG 4L NC
[2021-02-23] MEDS: DULoxetine HCL 20 MG CAPSULE.DR PO SCH (11:58)
[2021-02-23] MEDS: PANTOPRAZOLE 40 MG TABLET.DR. PO SCH (11:58)
[2021-02-23] MEDS: ASPIRIN ENTERIC COATED 81 MG TABLET.DR. PO SCH (11:58)
[2021-02-23] MEDS: LEFLUNOMIDE 10 MG TABLET. PO SCH (11:58)
[2021-02-23] MEDS: ATORVASTATIN CALCIUM 10 MG TABLET. PO SCH (11:58)
[2021-02-23] MEDS ORDERED: TERI2.4P SQ (12:11)
--- NOTE | 2021-02-23 14:42 | HP ---
DATE OF SERVICE: 02/23/2021 ADMIT DATE: 02/21/2021 CHIEF COMPLAINT: Fall with ankle pain. HISTORY OF PRESENT ILLNESS: The patient is a pleasant 70-year-old female who fell and presents to the ER with ankle pain. We did some imaging. She does have an ankle fracture on the right. We plan to admit the patient with consultation to Orthopedics. PAST MEDICAL HISTORY: Hypertension, hyperlipidemia, COPD, GERD, anemia, anxiety, osteoarthritis, rheumatoid arthritis, aortic stenosis as well. ALLERGIES: MORPHINE AND FENTANYL. FAMILY HISTORY: Diabetes. SOCIAL HISTORY: She does not drink, smoke or take drugs. MEDICATIONS: Reviewed, please refer to the MRAD. EXTREMITIES: She complains of right ankle pain. REVIEW OF SYSTEMS: GENERAL: No history of weight change, weakness or fevers. SKIN: No bruising, hair changes or rashes. EYES: No blurred, double or loss of vision. NOSE AND THROAT: No history of nosebleeds, hoarseness or sore throat. HEART: No history of palpitations, chest pain or shortness of breath on exertion. LUNGS: Denies cough, hemoptysis, wheezing or shortness of breath. GASTROINTESTINAL: Denies changes in appetite, nausea, vomiting, diarrhea or constipation. GENITOURINARY: No history of frequency, urgency, hesitancy or nocturia. NEUROLOGIC: Denies history of numbness, tingling, tremor or weakness. PSYCHIATRIC: No history of panic, anxiety or depression. ENDOCRINE: No history of heat or cold intolerance, polyuria or polydipsia. EXTREMITIES: She complains of right ankle pain. PHYSICAL EXAMINATION: VITALS: Within normal limits and are stable. GENERAL: No apparent distress. Alert and oriented. HEENT: Normal cephalic atraumatic, external auditory canals are patent. EYES: Extraocular muscles are intact, pupils are equally round and reactive to light and accommodation. MUSCULOSKELETAL: Well developed, well nourished, good range of motion. ENDOCRINE: No thyromegaly was palpated. LYMPHATICS: No cervical chain or axillary nodes were noted. HEMATOPOIETIC: No bruising. NECK: Supple, no JVD, no thyromegaly was noted. LUNGS: Clear to auscultation in all lung holloway without rhonchi or wheezing. HEART: RRR, S1, S2 present. Peripheral pulses intact, no obvious murmurs were noted. ABDOMEN: Soft, nontender. Positive bowel sounds no organomegaly, normal bowel sounds. EXTREMITIES: The right ankle is in a splint. NEUROLOGIC: Normal speech, normal tone. A and O x 3, moves all extremities, no obvious focal deficits. PSYCHIATRIC: Normal affect, normal mood. Stable. SKIN: No ulcerations or rashes, good skin turgor, no jaundice. VASCULAR: Good capillary refill, neurovascular bundle appears to be intact. ASSESSMENT AND PLAN: Fall with right ankle fracture. The patient has been admitted. We will consult Orthopedics. Home meds. DVT prophylaxis. Full code. If she needs to go to surgery, suspect she will need rehabilitation after that. KAITLIN DR: Elizabeth TID: [id number]
[2021-02-23 15:00] VITALS: BP 119/42
--- NOTE | 2021-02-23 15:14 | CARD ---
MR#: [id number] Date of Study: 02/23/2021 Ordering Physician: GILDA ROBERTS, Referring Physician: GILDA ROBERTS Tech: Isadora Graham [facility] APPROVED REPORT EXAM: Two-dimensional and M-mode echocardiogram with Doppler and color Doppler. Other Information Quality : AverageHR: 66bpm Rhythm : NSRTechnically limited study due to body habitus. INDICATION Aortic Valve Disease RISK FACTORS Hypertension 2D DIMENSIONS RVDd4.1 (2.9-3.5cm)Left Atrium(2D)3.5 (1.6-4.0cm) IVSd1.2 (0.7-1.1cm)Aortic Root(2D)3.0 (2.0-3.7cm) LVDd5.6 (3.9-5.9cm)LVOT Diameter2.1 (1.8-2.4cm) PWd1.1 (0.7-1.1cm)LVDs3.7 (2.5-4.0cm) FS (%) 34.2 %SV97.7 ml LVEF(%)62.6 (>50%) Aortic Valve AoV Peak Rikki.311.8cm/sAoV VTI80.7cm AO Peak GR.38.9mmHgLVOT VTI 37.25cm AO Mean GR.29mmHg TDI Lateral E' P. V10.10cm/sMedial E' P. V6.05cm/s Tricuspid Valve TR P. [id number]/sTR Peak Gr.34mmHg LEFT VENTRICLE The Left Ventricle is mildly dilated. There is mild concentric left ventricular hypertrophy. The left ventricular systolic function is normal and the ejection fraction is within normal range. Estimated ejection fraction 60%. There is normal LV segmental wall motion. Transmitral Doppler flow pattern is Grade II-pseudonormal filling dynamics. RIGHT VENTRICLE The right ventricle is normal size. There is normal right ventricular wall thickness. The right ventr icular systolic function is normal. ATRIA The left atrium is moderately dilated. The right atrium is mildly dilated. The interatrial septum is intact with no evidence for an atrial septal defect or patent foramen ovale as noted on 2-D or Dopple r imaging. AORTIC VALVE Doppler and Color Flow revealed no significant aortic regurgitation. There is a bioprosthetic aortic valve prosthesis and not well visualized. Cannot rule out aortic valve stenosis. Consider SEBASTIAN. MITRAL VALVE The mitral valve is normal in structure and function. There is no evidence of mitral valve prolapse. There is no mitral valve stenosis. Doppler and Color-flow revealed mild mitral regurgitation. TRICUSPID VALVE The tricuspid valve is normal in structure and function. Doppler and Color Flow revealed trace to mil d tricuspid regurgitation. Estimated PAP 44 mmHg. There is no tricuspid valve stenosis. PULMONIC VALVE Doppler and Color Flow revealed no pulmonic valvular regurgitation. There is no pulmonic valvular akbar nosis. GREAT VESSELS The aortic root is normal in size. The ascending aorta is normal in size. The IVC is normal in size a nd collapses >50% with inspiration. PERICARDIAL EFFUSION There is no evidence of significant pericardial effusion. Critical Notification Critical Value: No <Conclusion> The left ventricular systolic function is normal and the ejection fraction is within normal range. E stimated ejection fraction 60%. There is normal LV segmental wall motion. There is a bioprosthetic aortic valve prosthesis and not well visualized. Cannot rule out aortic valv e stenosis. Consider SEBASTIAN. Doppler and Color Flow revealed trace to mild tricuspid regurgitation. Estimated PAP 44 mmHg. Signed by : Reynaldo Hernandez, Electronically Approved : 02/23/2021 15:13:31
--- NOTE | 2021-02-23 15:51 | NUR ---
Patient awake and alert and oriented at around 1130. Stated that she felt fine and was just very tired this morning and could not wake up. At about 1500 this RN went to check on the patient for rounds and again patient was able to open her eyes but would not keep them opened. She would not stay awake again. Vitals checked and notified physician. No new orders currently.
[2021-02-23 19:00] VITALS: BP 104/53
[2021-02-23] MEDS: traZODone 50 MG TABLET. PO SCH (21:31)
[2021-02-23 23:00] VITALS: BP 111/29
[2021-02-24 07:00] VITALS: BP 167/50
[2021-02-24] MEDS: BUDESONIDE 0.5 MG/2 ML NEBU. NEB SCH ×2 (07:26→19:37)
[2021-02-24] MEDS: IPRATRPIUM/ALBUTEROL 0.5/2.5MG 3 ML NEBU. NEB SCH ×4 (07:26→16:26)
[2021-02-24] MEDS: ASPIRIN ENTERIC COATED 81 MG TABLET.DR. PO SCH (09:24)
[2021-02-24] MEDS: PANTOPRAZOLE 40 MG TABLET.DR. PO SCH (09:24)
[2021-02-24] MEDS: LEFLUNOMIDE 10 MG TABLET. PO SCH (09:25)
[2021-02-24] MEDS: DULoxetine HCL 20 MG CAPSULE.DR PO SCH (09:25)
[2021-02-24] MEDS: ATENOLOL 50 MG TABLET. PO SCH (09:25)
[2021-02-24] MEDS: LOSARTAN POTASSIUM 25 MG TABLET. PO SCH (09:25)
[2021-02-24] MEDS: ATORVASTATIN CALCIUM 10 MG TABLET. PO SCH (09:25)
[2021-02-24] MEDS: tiZANidine 4 MG TABLET. PO SCH ×3 (09:26→21:53)
[2021-02-24] MEDS: PREGABALIN 75 MG CAPSULE PO SCH ×2 (09:26→21:52)
[2021-02-24] MEDS: oxyCODONE/APAP 7.5/325 1 TAB TABLET PO PRN ×2 (09:31→18:26)
[2021-02-24] MEDS: TERIPARATIDE SQ SCH (09:32)
[2021-02-24 11:00] VITALS: BP 113/38
--- NOTE | 2021-02-24 12:18 | PDOC ---
SMITHA SANDHU LAURYN 02/24/21 1217: CARDIO Progress Notes Date and Time Date of Service 02/24/21 Time of Evaluation 1215 Subjective Subjective: No Chest Pain, No shortness of breath, No Palpitations, No Dizziness Vitals Vitals Vital Signs Date Time Temp Pulse Resp B/P (MAP) Pulse Ox O2 Delivery O2 Flow Rate FiO2 02/24/21 11:29 100 Nasal Cannula 4.0 02/24/21 09:25 68 167/50 02/24/21 07:00 97.8 16 97.8 Weight Weight [ ] Input and Output Intake and Output Intake and Output 02/24/21 07:00 Intake Total 480 ml Output Total 400 ml Balance 80 ml Intake Oral 480 ml Output Urine Total 400 ml # Voids 1 Physical Exam HEENT: Neck Supple W Full Motion Chest: Symmetric LUNGS: Clear to Auscultation Heart: RRR, other (4/6 systolic murmur ) Abdomen: Soft N/T Extremities: Other (RLE splint ) Neurology: alert, oriented, follow commands Assessment Assessment 1. Traumatic mechanical fall with fracture right distal fibula, great toe, and second metatarsal. No LOC 2. Abnormal head CT: defer to PCP 4 mm rightward midline shift without a clear cause of mass effect. This may be a developmental variant per head CT 3. s/p bioprosthetic AVR; Echo 08/27 with moderate stenosis as below. Valve not well visualized on echo this admission 4. HTN: adequate 5. Sinus bradycardia; asymptomatic. lowest 44. No pauses. BB recently discontinued due to bradycardia, hypotension 6. HLP 7. CAD: mild, nonobstructive disease per recent C as noted below 8. MIRTA, hyperkalemia r/t dehydration: improved s/p IV hydration 9. Chronic diastolic CHF: appears compensated. Echo with preserved LV systolic function 10. COPD with continued tobaccoism. reinforced cessation 11. Anemia thrombocytopenia; monitor Recommendations Avoid AV orly blocking agents Continue losartan Supportive care Outpatient SEBASTIAN for definitive evaluation of aortic valve Patient considering transferring cardiac care to [facility]. Contact information provided Records from [facility] 08/20/20 - 2D + DOPPLER ECHO Interpretation Summary LVEF=60%. Normal left ventricular size and systolic function. Right ventricular size and function are normal. Severely dilated left atrium. Bioprosthetic aortic valve with moderate stenosis. No regurgitation. Mitral annular calcification with mild-moderate regurgitation. No mitral stenosis. No pericardial effusion. Estimated pulmonary artery systolic pressure is 41 mmHg. Compared to the echocardiogram completed on 03/24/20, global left ventricular systolic function is significantly improved. The previous aortic valve mean gradient was 16.53 mmHg with a peak velocity of 2.72 m/s. No change in mitral regurgitation or tricuspid valve regurgitation. CARDIAC CATHETERIZATION REPORT Date 08/09/2020 SELECTIVE CORONARY ANGIOGRAM: Left main: Left main artery arises normally from the left coronary sinus. The left main artery is noted to be patent. Left anterior descending artery arises normally from the left main. Proximally, it is noted to be patent. After giving rise to a large diagonal branch, there are mild luminal irregularities of about 10% to 20%. The mid part of the left anterior descending artery shows mild myocardial bridging. Distally, the left anterior descending artery is patent. The left anterior descending artery gives rise to a large diagonal branch which also has about a 20% disease proximally. The rest of the diagonal branches appear to be small and they are patent. Left circumflex artery: The left circumflex artery arises normally from the left main. Left circumflex artery shows no significant disease. It gives rise to 1 obtuse marginal branch and that obtuse marginal branch appears to be patent with no significant disease. Ramus intermedius: This arises normally from the left main. The ramus intermedius has about a 30% to 40% disease in its midportion. Right coronary artery: The right coronary artery is a dominant vessel. It arises normally from the right coronary sinus. It has approximately a 40% disease in its midportion. Proximally, it is patent. Distally, the right coronary artery is patent and gives rise to posterolateral posterior descending arterial branches, both of which appear to be patent with no significant d isease. FINAL IMPRESSION: Nonobstructive coronary artery disease. Low systolic blood pressures. Patient's blood pressure did seem to respond to IV fluids, and the aortic blood pressure was 116/56 with a mean of 80 mmHg. RECOMMENDATION: No significantly obstructive coronary artery disease is noted. Justicifation of Admission Dx: Justifications for Admission: Justification of Admission Dx: Yes TRINO CM MD 02/25/21 0928: CARDIO Progress Notes Assessment Assessment Patient seen and examined 02/24/21. Agree with EIGHT SECTION BLOWER's assessment and plan. Fall mechanical without any loss of consciousness EKG with sinus bradycardia Hypotension secondary to dehydration, continue intravenous fluids s/p bioprosthetic AVR for aortic stenosis - echo showed normal LVEF with poorly visualized bioprosth AV Prior records reviewed - previous echo showed moderate prosthetic AV stenosis Plan SEBASTIAN for definitive evaluation as outpatient Non-obstructive CAD status clinically stable SMITHA SANDHU APRN Feb 24, 2021 12:17 TRINO CM MD Feb 25, 2021 09:28
--- NOTE | 2021-02-24 12:19 | PDOC ---
[facility] PROGRESS NOTE Date of Service DOS: DATE: 02/24/21 TIME: 12:15 Chief Complaint Chief Complaint Right ankle fracture Hypertension Hypotension Hyperlipidemia ASA COPD GERD Anemia Anxiety Osteoarthritis Rheumatoid arthritis History of Present Illness History of Present Illness 02/24/2021 Patient seen and examined Discussed with RN Chart reviewed Patient is cheerful and pleasant. Very cooperative. Vitals/I&O Vitals/I&O: Vital Signs Date Time Temp Pulse Resp B/P (MAP) Pulse Ox O2 Delivery O2 Flow Rate FiO2 02/24/21 11:29 100 Nasal Cannula 4.0 02/24/21 09:25 68 167/50 02/24/21 07:00 97.8 16 97.8 I & O 02/23/21 02/23/21 02/24/21 15:00 23:00 07:00 Intake Total 240 ml 240 ml Output Total 0 ml 400 ml Balance 240 ml -160 ml Physical Exam General: Alert, Oriented X3, Cooperative, No acute distress Heart: Regular rate (SR), Normal S1, Normal S2, Other (5/6 systolic murmur loudest to PETAR and apex) Abdomen: Soft, No tenderness Extremities: No cyanosis, No edema Skin: No breakdown, No significant lesion Assessment and Plan Assessmemt and Plan Right ankle fracture Hypertension Hypotension Hyperlipidemia ASA COPD GERD Anemia Anxiety Osteoarthritis Rheumatoid arthritis Plan: Monitor blood pressure PT/OT Continue pain medications Discharge disposition pending (she probably needs to go home with home health) Supplemental O2 as needed Home meds Comment Review of Relevant I have reviewed the following items maggie (where applicable) has been applied. Medications: Current Medications Medications (Trade) Dose Ordered Sig/Jagdeep Route PRN Reason Start Time Stop Time Status Last Admin Dose Admin Non-Formulary Medication (FORTEO (Teriparatide) 250mcg/1ml Pen) 1 ea DAILY SQ 02/24/21 09:00 02/24/21 09:32 Justifications for Admission Other Justification HAILE ESCOBAR III DO Feb 24, 2021 12:19
--- NOTE | 2021-02-24 14:37 | NUR ---
SW following. Discussed with RN, therapy recommending SNF. SW met with pt, pt agreeable and would like [facility]. SW faxed referral, pt accepted at [facility] pending insurance auth. RN notified. Pt needs another PCR COVID for placement. SW will continue to follow.
[2021-02-24 15:00] VITALS: BP 117/40
--- NOTE | 2021-02-24 16:18 | NUR ---
Wound/Ostomy Care Wound Type/Assessment: Wound consult for coccyx wound. Pt has stage III PU to coccyx with red blanchable surrounding skin. Wound pictured, measured, and dressed wound. Treatment Recommendations/Plan: Cleanse wound, apply medihoney alginate and foam, change every 3 days Education provided: PU prevention and WC POC Offloading surface/device: TQ2H, patient is self turn, wheelchair cushion ordered. Recommended Referrals/Tests: na Discharge Recommendations for dressings: see above
[2021-02-24 19:00] VITALS: BP 124/38
[2021-02-24] MEDS: traZODone 50 MG TABLET. PO SCH (21:52)
[2021-02-24 23:45] VITALS: BP 123/45
[2021-02-25] MEDS: oxyCODONE/APAP 7.5/325 1 TAB TABLET PO PRN ×3 (00:59→15:03)
[2021-02-25 03:12] VITALS: BP 118/39
[2021-02-25 07:00] VITALS: BP 127/36
[2021-02-25] MEDS: IPRATRPIUM/ALBUTEROL 0.5/2.5MG 3 ML NEBU. NEB SCH ×3 (07:57→15:15)
[2021-02-25] MEDS: BUDESONIDE 0.5 MG/2 ML NEBU. NEB SCH (07:58)
[2021-02-25] MEDS: LEFLUNOMIDE 10 MG TABLET. PO SCH (09:04)
[2021-02-25] MEDS: PREGABALIN 75 MG CAPSULE PO SCH (09:04)
[2021-02-25] MEDS: ASPIRIN ENTERIC COATED 81 MG TABLET.DR. PO SCH (09:04)
[2021-02-25] MEDS: DULoxetine HCL 20 MG CAPSULE.DR PO SCH (09:05)
[2021-02-25] MEDS: ATORVASTATIN CALCIUM 10 MG TABLET. PO SCH (09:05)
[2021-02-25] MEDS: LOSARTAN POTASSIUM 25 MG TABLET. PO SCH (09:05)
[2021-02-25] MEDS: PANTOPRAZOLE 40 MG TABLET.DR. PO SCH (09:05)
[2021-02-25] MEDS: tiZANidine 4 MG TABLET. PO SCH ×2 (09:05→15:03)
[2021-02-25] MEDS: ATENOLOL 50 MG TABLET. PO SCH (09:07)
[2021-02-25] MEDS: TERIPARATIDE SQ SCH (09:08)
[2021-02-25] MEDS ORDERED: ASPI-886 PO (09:56)
[2021-02-25] MEDS ORDERED: OXYC1TAB19 PO (09:56)
--- NOTE | 2021-02-25 09:59 | SNU/HH DC ---
DISCHARGE ORDERS DISCHARGE INFORMATION: DISCHARGE DATE: Feb 25, 2021 FINAL DIAGNOSIS Ankle fracture CONDITION ON DISCHARGE: Stable CODE STATUS: Code Status: Full ALF: SNF STAY <30 DAYS: Yes POST DISCHARGE ORDERS: ACTIVITY ORDERS: Activity as tolerated WEIGHT BEARING STATUS: As tolerated DIET AFTER DISCHARGE: Regular WOUND/INCISION CARE: Ice to area for comfort, Keep wound/cast CDI CHECKS AFTER DISCHARGE: CHECKS AFTER DISCHARGE: Check blood press - daily, Check your Temp as needed TREATMENT/EQUIPMENT ORDERS: ADAPTIVE EQUIPMENT NEEDED: Walker RESPIRATORY EQUIPMENT NEEDED: Oxygen Physical Therapy For: Evalulation/Treatment Occupational Therapy For: Evaluation/Treatment DISCHARGE MEDICATIONS: Home Meds Active Scripts Oxycodone/Apap 7.5-325 (PERCOCET 7.5-325 MG TABLET ) 1 Each Tablet, 1 TAB PO PRN Q6HRS PRN for PAIN for 5 Days, #20 TAB Prov:CESAR DUENAS MD 02/25/21 Aspirin (ASPIRIN EC) 81 Mg Tablet.dr, 81 MG PO DAILYWBKFT for prophylaxis for 30 Days, #30 TAB.SR Prov:CESAR DUENAS MD 02/25/21 Reported Medications Teriparatide (FORTEO) 2.4 Ml Pen.injctr, 20 MCG SQ DAILY for bone health, #1 SYR 11 Refills 02/23/21 Trazodone Hcl (TRAZODONE HCL) 150 Mg Tablet, 1 TAB PO QHS for med list for 30 Days, #30 TAB 0 Refills 02/22/21 Tizanidine Hcl (TIZANIDINE HCL) 4 Mg Tablet, 1 TAB PO TID for med list, #90 TAB 02/22/21 Pantoprazole Sodium (PANTOPRAZOLE SODIUM ) 40 Mg Tablet.dr, 40 MG PO DAILYAC for GERD, TAB 02/22/21 Losartan Potassium (LOSARTAN POTASSIUM) 50 Mg Tablet, 25 MG PO DAILY for HYPERTENSION, TAB 02/22/21 Leflunomide (LEFLUNOMIDE) 20 Mg Tablet, 20 MG PO DAILY for med list, TAB 02/22/21 Ipratropium Gleason (IPRATROPIUM BROMIDE) 0.2 Mg/1 Ml Solution, 21 MCG NS BID for med list, MISC 02/22/21 Fluticasone/Vilanterol (BREO ELLIPTA 100-25 MCG INH) 1 Each Aer.pow.ba, 1 PUFF IH DAILY for med list, EACH 02/22/21 Bisoprolol Fumarate (BISOPROLOL FUMARATE) 5 Mg Tablet, 1 TAB PO DAILY for med list, #30 TAB 5 Refills 02/22/21 Atorvastatin Calcium (ATORVASTATIN CALCIUM) 10 Mg Tablet, 1 TAB PO DAILY for med list, #30 TAB 5 Refills 02/22/21 Alendronate Sodium (ALENDRONATE SODIUM) 70 Mg Tablet, 1 TAB PO WEEKLY for Med list, #4 TAB 3 Refills 02/22/21 Pregabalin (LYRICA) 300 Mg Capsule, 1 CAP PO BID for nerve pain, #60 CAP 2 Refills 02/22/21 Leflunomide (ARAVA) 20 Mg Tablet, 1 TAB PO DAILY for immunosuppresive, #30 TAB 02/22/21 Duloxetine Hcl (CYMBALTA) 20 Mg Capsule.dr, 1 CAP PO DAILY for depression, #30 CAP 2 Refills 02/22/21 Discontinued Reported Medications Sulfamethoxazole/Trimethoprim (SULFAMETHOXAZOLE-TMP SS TABLET) 1 Each Tablet, 1 TAB PO BID for med list for 10 Days, #20 TAB 0 Refills 02/22/21 Potassium Chloride (Klor-Con 10) 10 Meq Tablet.er, 1 TAB PO DAILY for med list for 30 Days, #30 TAB 0 Refills 02/22/21 Lovastatin (LOVASTATIN) 20 Mg Tablet, 1 TAB PO DAILY for med list, #30 TAB 5 Refills 02/22/21 Fluconazole (FLUCONAZOLE) 100 Mg Tablet, 1 TAB PO DAILY for med list, #10 TAB 02/22/21 Oxycodone/Apap 7.5-325 (PERCOCET 7.5-325 MG TABLET ) 1 Each Tablet, 1 TAB PO Q6HRS PRN for PAIN MDD 4 Tablet(s) for 5 Days, #20 TAB 0 Refills 02/22/21 Oxycodone/Apap 2.5-325 (PERCOCET 2.5-325 MG TABLET) 1 Each Tablet, 1 TAB PO Q6HRS PRN for PAIN, TAB 0 Refills 02/22/21 CESAR DUENAS MD Feb 25, 2021 09:59
--- NOTE | 2021-02-25 10:57 | NUR ---
SW following. Discussed with RN, insurance approved transfer to [facility]. Discharge orders and new negative COVID test faxed. Awaiting ortho to cast ankle. Transportation arranged by [facility] for 1600. RN notified.
[2021-02-25 11:00] VITALS: BP 110/37
--- NOTE | 2021-02-25 11:21 | PDOC3 ---
[facility]-Discharge Summary Date of Admission: Date of Admission: Feb 22, 2021 Date of Discharge: Date of Discharge: Feb 25, 2021 Admission Diagnosis: Problems: (1) Closed right ankle fracture Discharge Diagnosis: Discharge Diagnosis: Same Consults: Consults: Ortho Hospital Course: Hospital Course: The patient is a pleasant 70-year-old female who fell and presents to the ER with ankle pain. We did some imaging. She does have an ankle fracture on the right. We plan to admit the patient with consultation to Orthopedics. Patient was evaluated by orthopedics who recommended casting once swelling went down. Patient maintained nonweightbearing status. Pain was controlled with medications. Evaluated by PT OT. Needs rehab. Was accepted and discharged on February 25. I spent greater than 30 minutes on the discharge of this patient. Disposition: Disposition/Orders: D/C to Another Facility Activity: Activity: Resume previous activity Diet: Diet: Regular, Renal Medications: Home Meds Active Scripts Oxycodone/Apap 7.5-325 (PERCOCET 7.5-325 MG TABLET ) 1 Each Tablet, 1 TAB PO PRN Q6HRS PRN for PAIN for 5 Days, #20 TAB Prov:CESAR DUENAS MD 02/25/21 Aspirin (ASPIRIN EC) 81 Mg Tablet., 81 MG PO DAILYWBKFT for prophylaxis for 30 Days, #30 TAB.SR Prov:CESAR DUENAS MD 02/25/21 Reported Medications Teriparatide (FORTEO) 2.4 Ml Pen.injctr, 20 MCG SQ DAILY for bone health, #1 SYR 11 Refills 02/23/21 Trazodone Hcl (TRAZODONE HCL) 150 Mg Tablet, 1 TAB PO QHS for med list for 30 Days, #30 TAB 0 Refills 02/22/21 Tizanidine Hcl (TIZANIDINE HCL) 4 Mg Tablet, 1 TAB PO TID for med list, #90 TAB 02/22/21 Pantoprazole Sodium (PANTOPRAZOLE SODIUM ) 40 Mg Tablet.dr, 40 MG PO DAILYAC for GERD, TAB 02/22/21 Losartan Potassium (LOSARTAN POTASSIUM) 50 Mg Tablet, 25 MG PO DAILY for HYPERTENSION, TAB 02/22/21 Leflunomide (LEFLUNOMIDE) 20 Mg Tablet, 20 MG PO DAILY for med list, TAB 02/22/21 Ipratropium [place] (IPRATROPIUM BROMIDE) 0.2 Mg/1 Ml Solution, 21 MCG NS BID for med list, MISC 02/22/21 Fluticasone/Vilanterol (BREO ELLIPTA 100-25 MCG INH) 1 Each Aer.pow.ba, 1 PUFF IH DAILY for med list, EACH 02/22/21 Bisoprolol Fumarate (BISOPROLOL FUMARATE) 5 Mg Tablet, 1 TAB PO DAILY for med list, #30 TAB 5 Refills 02/22/21 Atorvastatin Calcium (ATORVASTATIN CALCIUM) 10 Mg Tablet, 1 TAB PO DAILY for med list, #30 TAB 5 Refills 02/22/21 Alendronate Sodium (ALENDRONATE SODIUM) 70 Mg Tablet, 1 TAB PO WEEKLY for Med list, #4 TAB 3 Refills 02/22/21 Pregabalin (LYRICA) 300 Mg Capsule, 1 CAP PO BID for nerve pain, #60 CAP 2 Refills 02/22/21 Leflunomide (ARAVA) 20 Mg Tablet, 1 TAB PO DAILY for immunosuppresive, #30 TAB 02/22/21 Duloxetine Hcl (CYMBALTA) 20 Mg Capsule.dr, 1 CAP PO DAILY for depression, #30 CAP 2 Refills 02/22/21 Discontinued Reported Medications Sulfamethoxazole/Trimethoprim (SULFAMETHOXAZOLE-TMP SS TABLET) 1 Each Tablet, 1 TAB PO BID for med list for 10 Days, #20 TAB 0 Refills 02/22/21 Potassium Chloride (Klor-Con 10) 10 Meq Tablet.er, 1 TAB PO DAILY for med list for 30 Days, #30 TAB 0 Refills 02/22/21 Lovastatin (LOVASTATIN) 20 Mg Tablet, 1 TAB PO DAILY for med list, #30 TAB 5 Refills 02/22/21 Fluconazole (FLUCONAZOLE) 100 Mg Tablet, 1 TAB PO DAILY for med list, #10 TAB 02/22/21 Oxycodone/Apap 7.5-325 (PERCOCET 7.5-325 MG TABLET ) 1 Each Tablet, 1 TAB PO Q6HRS PRN for PAIN MDD 4 Tablet(s) for 5 Days, #20 TAB 0 Refills 02/22/21 Oxycodone/Apap 2.5-325 (PERCOCET 2.5-325 MG TABLET) 1 Each Tablet, 1 TAB PO Q6HRS PRN for PAIN, TAB 0 Refills 02/22/21 Scheduled Alendronate Sodium (Alendronate Sodium), 1 TAB PO WEEKLY, (Reported) Aspirin (Aspirin Ec), 81 MG PO DAILYWBKFT Atorvastatin Calcium (Atorvastatin Calcium), 1 TAB PO DAILY, (Reported) Bisoprolol Fumarate (Bisoprolol Fumarate), 1 TAB PO DAILY, (Reported) Duloxetine Hcl (Cymbalta), 1 CAP PO DAILY, (Reported) Fluticasone/Vilanterol (Breo Ellipta 100-25 Mcg Inh), 1 PUFF IH DAILY, (Reported) Ipratropium [place] (Ipratropium E[place]oy), 21 MCG NS BID, (Reported) Leflunomide (Arava), 1 TAB PO DAILY, (Reported) Leflunomide (Leflunomide), 20 MG PO DAILY, (Reported) Losartan Potassium (Losartan Potassium), 25 MG PO DAILY, (Reported) Pantoprazole Sodium (Pantoprazole Sodium ), 40 MG PO DAILYAC, (Reported) Pregabalin (Lyrica), 1 CAP PO BID, (Reported) Teriparatide (Forteo), 20 MCG SQ DAILY, (Reported) Tizanidine Hcl (Tizanidine Hcl), 1 TAB PO TID, (Reported) Trazodone Hcl (Trazodone Hcl), 1 TAB PO QHS, (Reported) Scheduled PRN Oxycodone/Apap 7.5-325 (Percocet 7.5-325 Mg Tablet ), 1 TAB PO PRN Q6HRS PRN for PAIN Discontinued Medications Fluconazole (Fluconazole), 1 TAB PO DAILY, (Reported) Lovastatin (Lovastatin), 1 TAB PO DAILY, (Reported) Oxycodone/Apap 2.5-325 (Percocet 2.5-325 Mg Tablet), 1 TAB PO Q6HRS PRN for PAIN, (Reported) Oxycodone/Apap 7.5-325 (Percocet 7.5-325 Mg Tablet ), 1 TAB PO Q6HRS PRN for PAIN, (Reported) Potassium Chloride (Klor-Con 10), 1 TAB PO DAILY, (Reported) Sulfamethoxazole/Trimethoprim (Sulfamethoxazole-Tmp Ss Tablet), 1 TAB PO BID, ( Reported) Justicifation of Admission Dx: Justifications for Admission: Justification of Admission Dx: Yes CESAR DUENAS MD Feb 25, 2021 11:21
--- NOTE | 2021-02-25 12:58 | PDOC ---
PROGRESS NOTES Date of Service: DATE: 02/25/21 TIME: 12:56 Subjective Subjective Denied any chest pain or shortness of breath Objective Objective Vital Signs Date Time Temp Pulse Resp B/P (MAP) Pulse Ox O2 Delivery O2 Flow Rate FiO2 02/25/21 11:39 Nasal Cannula 3.0 02/25/21 11:00 98.3 45 16 110/37 (61) 99 98.3 Intake and Output 02/25/21 07:00 Intake Total 1040 ml Output Total 0 ml Balance 1040 ml Intake Oral 1040 ml Output Urine Total 0 ml # Voids 3 Physical Exam Abdomen: Soft, No tenderness Heart: Regular rate (SR), Normal S1, Normal S2, Other (5/6 systolic murmur loudest to PETAR and apex) Extremities: No cyanosis, No edema General: Alert, Oriented X3, Cooperative, No acute distress HEENT: Atraumatic, Mucous membr. moist/pink Lungs: Other (diminished bases) MUSCULOSKELETAL: Osteoarthritic changes both hands, Other (fractured right foot, right big toe and distal fibula) Neuro: Normal speech, Sensation intact Psych/Mental Status: Mental status NL, Mood NL Skin: No breakdown, No significant lesion Assessment Assessment 1. Traumatic mechanical fall with fracture right distal fibula, great toe, and second metatarsal. No LOC 2. Abnormal head CT: defer to PCP 4 mm rightward midline shift without a clear cause of mass effect. This may be a developmental variant per head CT 3. s/p bioprosthetic AVR; Echo 08/27 with moderate stenosis as below. Valve not well visualized on echo this admission 4. HTN: adequate 5. Sinus bradycardia; asymptomatic. lowest 44. No pauses. BB recently discontinued due to bradycardia, hypotension 6. HLP 7. CAD: mild, nonobstructive disease per recent [facility] 8. MIRTA, hyperkalemia r/t dehydration: improved s/p IV hydration 9. Chronic diastolic CHF: appears compensated. Echo with preserved LV systolic function 10. COPD with continued tobaccoism. reinforced cessation 11. Anemia thrombocytopenia; monitor Recommendations Avoid AV orly blocking agents Continue losartan Supportive care Outpatient [facility] for definitive evaluation of aortic valve Patient considering transferring cardiac care to [facility]. Contact information provided Comment Review of Relevant I have reviewed the following items maggie (where applicable) has been applied. Labs Laboratory Tests Test 02/24/21 15:50 SARS-CoV-2 RNA (LINNEA) Negative (Negative) Medications Current Medications Non-Formulary Medication (Alendronate Sodium ) 1 tab WEEKLY PO ; Start 03/01/21 at 09:00; Status UNV Vitals/I & O Vital Sign - Last 24 Hours 02/24/21 02/24/21 02/24/21 02/24/21 15:00 16:27 19:00 19:38 Temp 98.3 98.7 98.3 98.7 Pulse 61 56 Resp 20 17 B/P (MAP) 117/40 (65) 124/38 (66) Pulse Ox 97 98 100 O2 Delivery Nasal Cannula Nasal Cannula Nasal Cannula Nasal Cannula O2 Flow Rate 3.0 3.0 3.0 4.0 02/24/21 02/25/21 02/25/21 02/25/21 23:45 00:59 03:12 07:00 Temp 98.4 98.3 97.5 98.4 98.3 97.5 Pulse 51 49 45 Resp 16 16 16 B/P (MAP) 123/45 (71) 118/39 (65) 127/36 (66) Pulse Ox 95 99 100 O2 Delivery Nasal Cannula Nasal Cannula Nasal Cannula Nasal Cannula O2 Flow Rate 2.0 4.0 2.0 2.0 02/25/21 02/25/21 02/25/21 02/25/21 08:01 08:02 09:04 09:05 Pulse 45 Resp 19 B/P (MAP) 127/36 Pulse Ox 98 98 98 O2 Delivery Nasal Cannula Nasal Cannula Nasal Cannula O2 Flow Rate 3.0 3.0 4.0 02/25/21 02/25/21 02/25/21 09:07 11:00 11:39 Temp 98.3 98.3 Pulse 52 45 Resp 16 B/P (MAP) 127/36 110/37 (61) Pulse Ox 99 O2 Delivery Nasal Cannula Nasal Cannula O2 Flow Rate 2.0 3.0 Intake and Output 02/24/21 02/24/21 02/25/21 15:00 23:00 07:00 Intake Total 700 ml 340 ml Output Total 0 ml Balance 700 ml 340 ml 0 ml TRINO CM MD Feb 25, 2021 12:58
--- NOTE | 2021-02-25 13:52 | PN ---
DATE: 02/25/2021 She is seen daily, but however, today, there was enough swelling, diminished that she could be casted. Therefore, we applied a [id number] cast for her distal tibial fracture. She tolerated this well without any complications, problems or concerns. She will be discharged today by Medicine and she will follow up with us in 2 weeks for re-x-ray and reevaluation. OMER DR: Juliano TID: [id number]
[2021-02-25 15:00] VITALS: BP 125/35
--- NOTE | 2021-02-25 16:17 | NUR ---
Discharge Note: FARHAN DE LA CRUZ [facility] Discharge instructions and discharge home medications reviewed with Fina HALEY of [facility] at 1610 and a copy given to the transport personnel. All questions have been answered and understanding verbalized. The following instructions and handouts were given: Home meds as directed Med-forteo returned to the patient. Fall precautions, NWB on right foot Follow up with PCP in weeks, ortho by appointment. Discontinued lines and drains: IV intact, no complications upon removal Patient discharged todischarged to [facility] via WC on 4 L oxygen per [place] at 1610.
[2021-03-01] MEDS ORDERED: NON FORMULARY ITEM (Alendronate Sodium 1 TAB) PO SCH (09:00)
== END 2021-02-25 16:02 | DRG 563 ==
LOC: ER 21:55 → 5 SOUTH 23:00
PROVIDERS: ADMIT Internal Medicine; ATTEND Internal Medicine
DX: S92.323A Displaced fracture of second metatarsal bone, unspecified foot, initial encounter for closed fracture (principal); I50.32 Chronic diastolic (congestive) heart failure; N17.9 Acute kidney failure, unspecified; S82.891A Other fracture of right lower leg, initial encounter for closed fracture; D64.9 Anemia, unspecified; D69.6 Thrombocytopenia, unspecified; E78.5 Hyperlipidemia, unspecified; E86.0 Dehydration; E87.5 Hyperkalemia; F17.210 Nicotine dependence, cigarettes, uncomplicated; F41.9 Anxiety disorder, unspecified; I11.0 Hypertensive heart disease with heart failure; I25.10 Atherosclerotic heart disease of native coronary artery without angina pectoris; I35.0 Nonrheumatic aortic (valve) stenosis; I45.10 Unspecified right bundle-branch block; J44.9 Chronic obstructive pulmonary disease, unspecified; K21.9 Gastro-esophageal reflux disease without esophagitis; M06.9 Rheumatoid arthritis, unspecified; M19.90 Unspecified osteoarthritis, unspecified site; S92.413A Displaced fracture of proximal phalanx of unspecified great toe, initial encounter for closed fracture; W01.0XXA Fall on same level from slipping, tripping and stumbling without subsequent striking against object, initial encounter; Z83.3 Family history of diabetes mellitus; Z90.710 Acquired absence of both cervix and uterus; Z95.3 Presence of xenogenic heart valve; Z95.5 Presence of coronary angioplasty implant and graft; Z98.1 Arthrodesis status
CPT/HCPCS: 29515; 36415; 36600; 70450; 71045; 71275; 73502; 73590; 73610; 73630; 80048; 80053; 80307; 82550; 82805; 82962; 83605; 83735; 83880; 84100; 84443; 84484; 85025; 85379; 85610; 87426; 93005; 93306; 94640; 94760; 96360; 96361; G0480; J3010; J3475; J7030; J7040; Q9967; U0003; U0005; 97110-GP; 97530-GP; 97535-GO; 99285-25; G0378; J7613; J7626; J7644